=== PATIENT | male | born 1955 | race African-American/Black ===

== ENCOUNTER 2019-05-18 12:31 | Inpatient (IN) | payer MEDICARE, OTHER ==
[~2019-05-18] VITALS: Ht 172.7 cm; Wt 127.9 kg
[~2019-05-18 12:31] MED LIST: INSU3INS6 SQ; LISI-604 PO; LOSA25TA26 PO
[2019-05-18] MEDS ORDERED: MECLIZINE 25MG TABLET PO ONE (13:00)
[2019-05-18] MEDS ORDERED: ONDANSETRON HCL 4MG/2ML INJ IV ONE (13:00)
[2019-05-18] MEDS ORDERED: SODIUM CHLORIDE 0.9% 500 ML IV ONE (13:00)
[2019-05-18 13:16] LABS: BASOPHILS % 0.4 % (0.0-2.0); EOSINOPHILS % 0.5 % (0.0-5.0); HEMATOCRIT. 52.6 % (42.0-52.0); HEMOGLOBIN. 17.6 g/dL (14.0-18.0); LYMPHOCYTES % 19.5 % (20.0-50.0); MEAN CORPUSCULAR HEMOGLOBIN 28.2 pg (28.0-32.0); MEAN CORPUSCULAR VOLUME 84.2 fL (80.0-94.0); MEAN PLATELET VOLUME 9.5 fl (7.4-10.4); MONOCYTES % 6.4 % (2.0-8.0); NEUTROPHILS % 73.2 % (40.0-76.0); PLATELET 129 x1000/uL (130-400); RED BLOOD CELL COUNT 6.25 mill/uL (4.7-6.1)
[2019-05-18 13:21] LABS: CHLORIDE 105 mEq/L (98-107)
[2019-05-18 13:22] LABS: INR 1.1; PROTHROMBIN TIME 11.4 sec (9.6-11.0)
[2019-05-18] MEDS ORDERED: DIAZEPAM 2 MG TABLET PO ONE ×2 (15:00→15:45)
[2019-05-18] MEDS ORDERED: IPRATROPIUM/ALBUTEROL 0.5-3(2.5)MG/3ML NEB INH PRN (15:15)
[2019-05-18] MEDS ORDERED: HYDROCODONE/ACETAMINOPHEN 5/325MG TABLET PO PRN (15:15)
[2019-05-18] MEDS ORDERED: ONDANSETRON HCL 4MG/2ML INJ IV PRN (15:15)
[2019-05-18] MEDS ORDERED: DEXTROSE 50% WATER 50ML SYRINGE IV PRN (21:30)
[2019-05-18] MEDS: INSULIN LISPRO (HIGH DOSE) 100 UNITS/ML SUBCUT SCH (23:21)
[2019-05-18] MEDS: BLOOD SUGAR DIAGNOSTIC STRIP TEST SCH (23:21)
[2019-05-18 23:38] LABS: CREATINE KINASE 180 IU/L (39-308)
[2019-05-18 23:39] LABS: CREATINE KINASE MB FRACTION 1.2 ng/mL (0.5-3.6)
[2019-05-18 23:45] VITALS: BP 150/81
[2019-05-19] VITALS (8 sets, daily range): BP systolic 128–175; BP diastolic 73–92
[2019-05-19] MEDS: CLONIDINE 0.1MG TABLET PO PRN (05:03)
[2019-05-19] MEDS: BLOOD SUGAR DIAGNOSTIC STRIP TEST SCH ×4 (05:27→21:34)
[2019-05-19] MEDS: INSULIN LISPRO (HIGH DOSE) 100 UNITS/ML SUBCUT SCH ×4 (06:22→21:43)
[2019-05-19 06:47] LABS: BASOPHILS % 0.6 % (0.0-2.0); EOSINOPHILS % 1.1 % (0.0-5.0); HEMATOCRIT. 48.9 % (42.0-52.0); HEMOGLOBIN. 16.1 g/dL (14.0-18.0); LYMPHOCYTES % 25.9 % (20.0-50.0); MEAN PLATELET VOLUME 9.6 fl (7.4-10.4); MONOCYTES % 8.5 % (2.0-8.0); NEUTROPHILS % 63.9 % (40.0-76.0); PLATELET 120 x1000/uL (130-400); RED BLOOD CELL COUNT 5.76 mill/uL (4.7-6.1); RED CELL DISTRIBUTION WIDTH 14.7 % (11.6-14.6)
[2019-05-19 07:31] LABS: *AMPHETAMINES SCREEN URINE NEGATIVE (NEGATIVE)
[2019-05-19 07:32] LABS: *BARBITURATES SCREEN URINE NEGATIVE (NEGATIVE); *BENZODIAZEPINES SCREEN URINE NEGATIVE (NEGATIVE); *COCAINE SCREEN URINE NEGATIVE (NEGATIVE); METHADONE URINE SCREEN NEGATIVE (NEGATIVE); OPIATES URINE SCREEN NEGATIVE (NEGATIVE); PHENCYCLIDINE URINE SCREEN NEGATIVE (NEGATIVE)
[2019-05-19 07:33] LABS: CANNABINOID URINE SCREEN NEGATIVE (NEGATIVE)
[2019-05-19 07:43] LABS: CHLORIDE 108 mEq/L (98-107)
[2019-05-19 08:01] LABS: CREATINE KINASE 200 IU/L (39-308); LDL CHOLESTEROL 73 mg/dL (5-100)
[2019-05-19 08:04] LABS: T4 FREE 1.16 ng/dL (0.76-1.46)
[2019-05-19 08:06] LABS: HDL CHOLESTEROL 37 mg/dL (40-59)
[2019-05-19 08:13] LABS: CREATINE KINASE MB FRACTION 1.2 ng/mL (0.5-3.6)
[2019-05-19] MEDS ORDERED: LIDOCAINE HCL/PF 1% 2ML VIAL ONE (08:36)
[2019-05-19] MEDS: ENOXAPARIN 30MG/0.3ML SYR SUBCUT SCH ×2 (09:40→21:43)
[2019-05-19 15:13] LABS: BG BASE EXCESS -2.3 mmol/L (-2.0-2.0); BG CARBOXYHEMOGLOBIN 0.8 % (0.5-1.5); BG DEOXYHEMOGLOBIN 5.3 % (0.0-5.0); BG HCO3 ACT 22.4 mmol/L (22.0-26.0); BG METHEMOGLOBIN 0.3 % (0.0-1.5); BG OXYGEN SATURATION 94.6 % (92.0-98.5); BG OXYHEMOGLOBIN 93.6 % (94.0-97.0); BG PCO2 38.7 mmHg (35.0-45.0); BG PH 7.381 (7.350-7.450); BG PO2 75.1 mmHg (75.0-100.0); BG SAMPLE SITE RIGHT RADIAL; BG TOTAL HEMOGLOBIN 16.2 g/dL (12.0-18.0); BG VENT MODE ROOM AIR
[2019-05-19] MEDS: ATORVASTATIN CALCIUM 20MG TABLET PO SCH (21:43)
[2019-05-20] VITALS (8 sets, daily range): BP systolic 141–160; BP diastolic 74–98
[2019-05-20] MEDS: BLOOD SUGAR DIAGNOSTIC STRIP TEST SCH ×4 (06:09→22:08)
[2019-05-20] MEDS: INSULIN LISPRO (HIGH DOSE) 100 UNITS/ML SUBCUT SCH ×4 (06:15→22:13)
[2019-05-20 06:26] LABS: CLARITY URINE CLEAR (CLEAR); COLOR URINE YELLOW (YELLOW); KETONES URINE NEGATIVE (NEGATIVE); LEUKOCYTE ESTERASE URINE NEGATIVE (NEGATIVE); NITRITE URINE NEGATIVE (NEGATIVE); OCCULT BLOOD URINE NEGATIVE (NEGATIVE); PROTEIN URINE 1+ (NEGATIVE); SPECIFIC GRAVITY URINE 1.013 (1.005-1.030)
[2019-05-20] MEDS: ENOXAPARIN 30MG/0.3ML SYR SUBCUT SCH ×2 (09:08→22:08)
[2019-05-20 09:28] LABS: HEMATOCRIT 50.6 % (42.0-52.0); HEMOGLOBIN 16.6 g/dL (14.0-18.0); MEAN CORPUSCULAR HEMOGLOBIN 27.8 pg (28.0-32.0); MEAN CORPUSCULAR VOLUME 84.5 fL (80.0-94.0); PLATELET 113 x1000/uL (130-400); RED CELL DISTRIBUTION WIDTH 14.9 % (11.6-14.6)
[2019-05-20] MEDS ORDERED: MECLIZINE 25MG TABLET PO PRN ×2 (12:30→12:45)
[2019-05-20] MEDS: ASPIRIN 81MG TABLET PO SCH (15:47)
[2019-05-20] MEDS: ATORVASTATIN CALCIUM 20MG TABLET PO SCH (22:07)
[2019-05-21] VITALS (7 sets, daily range): BP systolic 140–163; BP diastolic 74–91
[2019-05-21] MEDS: BLOOD SUGAR DIAGNOSTIC STRIP TEST SCH ×4 (05:27→20:46)
[2019-05-21] MEDS: INSULIN LISPRO (HIGH DOSE) 100 UNITS/ML SUBCUT SCH ×4 (06:24→20:46)
[2019-05-21] MEDS: ACETAMINOPHEN 325MG TABLET PO PRN (06:35)
[2019-05-21] MEDS: ASPIRIN 81MG TABLET PO SCH (08:05)
[2019-05-21] MEDS: ENOXAPARIN 30MG/0.3ML SYR SUBCUT SCH ×2 (08:06→20:44)
[2019-05-21 09:38] LABS: HEMATOCRIT 49.1 % (42.0-52.0); HEMOGLOBIN 16.2 g/dL (14.0-18.0); MEAN CORPUSCULAR HEMOGLOBIN 28.1 pg (28.0-32.0); PLATELET 120 x1000/uL (130-400); RED BLOOD CELL COUNT 5.78 mill/uL (4.7-6.1); RED CELL DISTRIBUTION WIDTH 14.5 % (11.6-14.6)
[2019-05-21] MEDS ORDERED: LIRA0.6P SQ (11:28)
[2019-05-21] MEDS ORDERED: INSLIS SUBCUT (11:28)
[2019-05-21] MEDS ORDERED: LIRA0.6P2 SQ (11:28)
[2019-05-21] MEDS ORDERED: GABA-290 PO (11:28)
[2019-05-21] MEDS ORDERED: INSU100I28 SQ (11:28)
[2019-05-21] MEDS: LISINOPRIL 20MG TABLET PO SCH (12:27)
[2019-05-21] MEDS ORDERED: DIPHENHYDRAMINE 50MG/ML VIAL IV PRN (14:30)
[2019-05-21] MEDS ORDERED: INSULIN GLARGINE UD 100 UNITS/ML SYR SUBCUT NR (15:30)
[2019-05-21] MEDS: ATORVASTATIN CALCIUM 20MG TABLET PO SCH (20:40)
[2019-05-21] MEDS: CLONIDINE 0.1MG TABLET PO PRN (20:43)
[2019-05-22] VITALS: BP_SYST 129; BP_SYST 139; BP_SYST 151; BP_DIAS 72; BP_DIAS 77; BP_DIAS 98
[2019-05-22 04:00] VITALS: BP 143/92
[2019-05-22] MEDS: BLOOD SUGAR DIAGNOSTIC STRIP TEST SCH (06:51)
[2019-05-22] MEDS: INSULIN LISPRO (HIGH DOSE) 100 UNITS/ML SUBCUT SCH (06:51)
[2019-05-22] MEDS: ACETAMINOPHEN 325MG TABLET PO PRN (06:52)
[2019-05-22 08:00] VITALS: BP 148/89
[2019-05-22] MEDS: LISINOPRIL 20MG TABLET PO SCH (08:52)
[2019-05-22] MEDS: ASPIRIN 81MG TABLET PO SCH (08:52)
[2019-05-22] MEDS: ENOXAPARIN 30MG/0.3ML SYR SUBCUT SCH (08:54)
[2019-05-22 10:39] VITALS: BP 148/89
== END 2019-05-22 11:02 | disposition home or self-care (01) | DRG 74 ==
LOC: ER 12:31 → 5WST 14:53 → EDBEDREQ 14:57 → ENRESERV 23:04
PROVIDERS: ADMIT Internal Medicine; ATTEND Internal Medicine
DX: G90.8 Other disorders of autonomic nervous system (principal); Z68.41 Body mass index [BMI] 40.0-44.9, adult; N39.0 Urinary tract infection, site not specified; E11.40 Type 2 diabetes mellitus with diabetic neuropathy, unspecified; N18.9 Chronic kidney disease, unspecified; D69.6 Thrombocytopenia, unspecified; E11.22 Type 2 diabetes mellitus with diabetic chronic kidney disease; E66.01 Morbid (severe) obesity due to excess calories; E78.5 Hyperlipidemia, unspecified; I12.9 Hypertensive chronic kidney disease with stage 1 through stage 4 chronic kidney disease, or unspecified chronic kidney disease; E78.00 Pure hypercholesterolemia, unspecified; Z53.29 Procedure and treatment not carried out because of patient's decision for other reasons; E11.65 Type 2 diabetes mellitus with hyperglycemia; H53.8 Other visual disturbances; Z79.899 Other long term (current) drug therapy
CPT/HCPCS: 36415; 36600; 71045; 80048; 80061; 80305; 82375; 82550; 82553; 82805; 82962; 83036; 84439; 84443; 84484; 85027; 93005; 93306; 93880; 96361; 96374; 97112; 97116; 97163; 99285; J1650; J1815; J2405; J3490; J7040; J8597